=== PATIENT | male | born 1965 | race Caucasian/White ===

== ENCOUNTER 2016-09-09 09:14 | Emergency (ER) | payer OTHER ==
[~2016-09-09] VITALS: Ht 185.4 cm; Wt 81.6 kg
[~2016-09-09 09:14] MED LIST: NKM; PERCOCET 5-3251 EACH ORAL; PREDNISONE20 MG ORAL; VALIUM10 MG ORAL
[2016-09-09] MEDS ORDERED: Ketorolac 30mg Inj IM ONE (09:45)
[2016-09-09] MEDS ORDERED: IBUPROFEN600 MG ORAL (09:51)
[2016-09-09] MEDS ORDERED: CYCLOBENZAPRINE10 MG ORAL (09:51)
[2016-09-09 10:04] VITALS: BP_SYST 114; BP_SYST 117; BP_DIAS 74; BP_DIAS 77
--- NOTE | 2016-09-09 10:06 | Emergency Room Report ---
History of Present Illness General Chief Complaint: Lower Back Pain or Injury Source: Patient Present Illness HPI 51-year-old male presents ED complaining of left flank pain x2 days. States that when getting up from his car 2 days ago he felt a twinge in his lower back. States she's had this problem in the past. History of back pain. States that he normally needs just some rest she tends to get better. Pain is throbbing, 510, nonradiating. No other aggravating or relieving factors. denies dysuria or hematuria. Denies any motor or leg weakness. Denies any bowel or bladder incontinence. Denies any other associated symptom Allergies: Coded Allergies: CYCLOBENZAPRINE (Verified Allergy, Mild, 10/18/14) TRAMADOL (Unverified Allergy, Unknown, 10/18/14) Patient History Past Medical History: none Past Surgical History: none Pertinent Family History: none Social History: Denies: alcohol use, drug use, smoking Immunizations: UTD Reviewed Nursing Documentation: PMH: Agreed, PSxH: Agreed Review of Systems All Other Systems: negative except mentioned in HPI Physical Exam Vital Signs Date Time Temp Pulse Resp B/P Pulse Ox O2 Delivery O2 Flow Rate FiO2 09/09/16 09:18 97.9 93 20 114/77 99 Room Air Sp02 EP Interpretation: reviewed, normal General Appearance: no apparent distress, alert, GCS 15, non-toxic Head: normocephalic Eyes: bilateral eye PERRL, bilateral eye normal inspection ENT: normal ENT inspection Neck: normal inspection Respiratory: normal inspection Cardiovascular #1: normal inspection Gastrointestinal: normal inspection Rectal: deferred Genitourinary: no CVA tenderness, no vertebral tenderness Musculoskeletal: tender - paraspinal lumbar tenderness Neurologic: alert, oriented x3, responsive, motor strength/tone normal, sensory intact, speech normal Psychiatric: normal inspection Skin: normal inspection Lymphatic: normal inspection Medical Decision Making Diagnostic Impression: Primary Impression: Low back sprain Qualified Codes: S33.9XXA - Sprain of unspecified parts of lumbar spine and pelvis, initial encounter ER Course Hospital Course 51-year-old male presents ED complaining of lower back pain x 2 days Differential diagnoses include: pyelonephritis, kidney stone, muscle strain, Lspine fracture Clinical course Patient placed on stretcher. After initial history and physical exam reveals a middle-age male in no acute distress. There is no vertebral body tenderness. There is no flank tenderness. There is some paraspinal lumbar tenderness in the left lower back. straight leg raise negative. 5 out of 5 motor strength in both legs I ordered toradol for pain. Upon reassessment patient states pain has improved. Diagnosis - low back pain Stable and discharged to home with prescription for Motrin, Flexeril. Followup with PMD. Return to ED if symptoms recur or worsen Last Vital Signs Date Time Temp Pulse Resp B/P Pulse Ox O2 Delivery O2 Flow Rate FiO2 09/09/16 09:18 97.9 93 20 114/77 99 Room Air Status: improved Disposition: HOME, SELF-CARE Condition: Stable Scripts Cyclobenzaprine Hcl* (FLEXERIL*) 10 Mg Tablet 10 MG ORAL TID Y for Muscle Spasm, #20 TAB Prov: LELE FERGUSON M.D. 09/09/16 Ibuprofen* (MOTRIN*) 600 Mg Tablet 600 MG ORAL Q8H Y for For Pain, #30 TAB 0 Refills Prov: LELE FERGUSON M.D. 09/09/16 Departure Forms: Return to Work Return to Work Date: September 14, 2016 Work Restrictions: None Patient Instructions: Low Back Sprain With Rehab-[facility] LELE FERGUSON M.D. September 09, 2016 10:06
== END 2016-09-09 10:05 | disposition home or self-care (01) ==
LOC: EMR 09:42
DX: S33.5XXA Sprain of ligaments of lumbar spine, initial encounter (principal); X58.XXXA Exposure to other specified factors, initial encounter; Y93.9 Activity, unspecified; Y99.9 Unspecified external cause status; Z88.5 Allergy status to narcotic agent; R10.9 Unspecified abdominal pain
CPT/HCPCS: 96372; 99284; J1885

== ENCOUNTER 2016-09-16 19:43 | Emergency (ER) | payer OTHER ==
[~2016-09-16] VITALS: Ht 185.4 cm; Wt 83.9 kg
[~2016-09-16 19:43] MED LIST changes: +CYCLOBENZAPRINE10 MG ORAL; +IBUPROFEN600 MG ORAL
[2016-09-16 20:07] VITALS: BP 130/84
[2016-09-16] MEDS ORDERED: Ketorolac 30mg Inj IM ONE (20:15)
[2016-09-16] MEDS ORDERED: IBUPROFEN600 MG ORAL (20:16)
[2016-09-16] MEDS ORDERED: SOMA350 MG PO (20:17)
[2016-09-16 20:37] VITALS: BP 130/84
--- NOTE | 2016-09-16 22:07 | Emergency Room Report ---
History of Present Illness General Chief Complaint: Lower Back Pain or Injury Source: Patient Present Illness HPI 51-year-old male presents ED complaining of back pain. States pain for the last 3 days. 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 Patient has had back pain in the past. Has been seen here in the past for his back pain. Pain is left sided, throbbing, 8/10, worse with bending or twisting. Nonradiating. Denies bowel or bladder incontinence. Denies leg or motor weakness. No other aggravating or relieving factors. Denies any other associated symptoms Allergies: Coded Allergies: CYCLOBENZAPRINE (Verified Allergy, Mild, 10/18/14) TRAMADOL (Unverified Allergy, Unknown, 10/18/14) Patient History Past Medical History: none Past Surgical History: none Pertinent Family History: none Social History: Denies: alcohol use, drug use, smoking Immunizations: UTD Reviewed Nursing Documentation: PMH: Agreed, PSxH: Agreed Nursing Documentation-PMH Past Medical History: No History, Except For Review of Systems All Other Systems: negative except mentioned in HPI Physical Exam Vital Signs Date Time Temp Pulse Resp B/P Pulse Ox O2 Delivery O2 Flow Rate FiO2 09/16/16 19:57 98.1 125 16 130/84 98 Room Air Sp02 EP Interpretation: reviewed, normal General Appearance: no apparent distress, alert, GCS 15, non-toxic Head: normocephalic, atraumatic Eyes: bilateral eye PERRL, bilateral eye normal inspection ENT: hearing grossly normal, normal pharynx, no angioedema, normal voice Neck: full range of motion, supple/symm/no masses Respiratory: chest non-tender, lungs clear, normal breath sounds, speaking full sentences Cardiovascular #1: regular rate, rhythm, no edema Cardiovascular #2: 2+ carotid (R), 2+ carotid (L), 2+ radial (R), 2+ radial (L) , 2+ dorsalis pedis (R), 2+ dorsalis pedis (L) Gastrointestinal: normal bowel sounds, non tender, soft, non-distended, no guarding, no rebound Rectal: deferred Genitourinary: normal inspection, no vertebral tenderness Musculoskeletal: back normal, gait/station normal, normal range of motion, non- tender, tender - paraspinal lumbar tenderness Neurologic: alert, oriented x3, responsive, motor strength/tone normal, sensory intact, speech normal Psychiatric: judgement/insight normal, memory normal, mood/affect normal, no suicidal/homicidal ideation Reflexes: 3+ bicep (R), 3+ bicep (L), 3+ tricep (R), 3+ tricep (L), 3+ knee (R) , 3+ knee (L) Skin: normal color, no rash, warm/dry, well hydrated Lymphatic: no adenopathy Medical Decision Making Diagnostic Impression: Primary Impression: Low back sprain Qualified Codes: S33.9XXA - Sprain of unspecified parts of lumbar spine and pelvis, initial encounter ER Course Hospital Course 51-year-old male presents ED complaining of lower back pain. Differential diagnoses include: pyelonephritis, kidney stone, muscle strain, Lspine fracture Clinical course Patient placed on stretcher. After initial history and physical I ordered toradol for pain. Upon reassessment patient states pain has improved. Pain is muscular on exam. Patient has been here multiple times for similar back pain. Has responded well to Toradol. Patient has never required narcotic medication for his pain Diagnosis - back pain Stable and discharged to home with prescription for Motrin, Soma. Followup with PMD. Return to ED if symptoms recur or worsen Last Vital Signs Date Time Temp Pulse Resp B/P Pulse Ox O2 Delivery O2 Flow Rate FiO2 09/16/16 20:37 98.1 89 16 130/84 98 Room Air Status: improved Disposition: HOME, SELF-CARE Condition: Stable Scripts Carisoprodol* (SOMA*) 350 Mg Tablet 350 MG PO Q6H, #20 TAB Prov: LELE FERGUSON M.D. 09/16/16 Ibuprofen* (MOTRIN*) 600 Mg Tablet 600 MG ORAL Q8H Y for For Pain, #30 TAB 0 Refills Prov: LELE FERGUSON M.D. 09/16/16 Referrals: [facility],REFERRING (PCP) Departure Forms: Return to Work Return to Work Date: Sep 20, 2016 Work Restrictions: No Heavy Lifting Patient Instructions: Lumbosacral Strain LELE FERGUSON M.D. Sep 16, 2016 22:07
== END 2016-09-16 20:37 | disposition home or self-care (01) ==
LOC: EMR 20:14
DX: S39.012A Strain of muscle, fascia and tendon of lower back, initial encounter (principal); X58.XXXA Exposure to other specified factors, initial encounter; Y93.9 Activity, unspecified; Y99.9 Unspecified external cause status; Z88.5 Allergy status to narcotic agent
CPT/HCPCS: 96372; 99284; J1885

== ENCOUNTER 2016-11-12 09:15 | Emergency (ER) | payer OTHER ==
[~2016-11-12] VITALS: Ht 185.4 cm; Wt 79.4 kg
[~2016-11-12 09:15] MED LIST changes: +SOMA350 MG PO
[2016-11-12 09:36] VITALS: BP 127/90
[2016-11-12] MEDS ORDERED: NORCO 5-325 TA1 EACH ORAL (09:52)
[2016-11-12 10:00] VITALS: BP 127/90
--- NOTE | 2016-11-12 13:43 | Emergency Room Report ---
History of Present Illness General Chief Complaint: General Complaint Source: Patient, Medical Record Present Illness HPI Patient presents emergency department today complaining left leg pain cramps. Patient states that he pulled his hamstring a few days ago and has been off work. He needs examine return to work note. He denies any dysuria or frequency. Denies any weakness. Denies any fever. No other complaints are noted. Symptoms noted to be moderate moderate. No other modifying factors. No other associated signs and symptoms. No other complaints were noted. Allergies: Coded Allergies: CYCLOBENZAPRINE (Verified Allergy, Mild, 10/18/14) TRAMADOL (Unverified Allergy, Unknown, 10/18/14) Patient History Past Medical History: none Past Surgical History: none Pertinent Family History: none Social History: Denies: alcohol use, drug use, smoking Reviewed Nursing Documentation: PMH: Agreed, PSxH: Agreed Nursing Documentation-PMH Past Medical History: No History, Except For Review of Systems All Other Systems: negative except mentioned in HPI Physical Exam Vital Signs Date Time Temp Pulse Resp B/P Pulse Ox O2 Delivery O2 Flow Rate FiO2 11/12/16 09:25 98.1 89 14 127/90 96 Room Air Sp02 EP Interpretation: reviewed, normal General Appearance: normal inspection, well appearing, no apparent distress, alert Head: atraumatic Eyes: bilateral eye normal inspection ENT: normal ENT inspection, hearing grossly normal, normal voice Neck: normal inspection, full range of motion, supple, no bony tend Respiratory: normal inspection, lungs clear, normal breath sounds, no respiratory distress, no retraction, no wheezing Cardiovascular #1: regular rate, rhythm, no edema Gastrointestinal: normal inspection, normal bowel sounds, non tender, soft, no guarding, no hernia Genitourinary: no CVA tenderness Musculoskeletal: normal inspection, back normal, normal range of motion Neurologic: normal inspection, alert, responsive, speech normal Psychiatric: normal inspection, judgement/insight normal, mood/affect normal Skin: normal inspection, normal color, no rash Medical Decision Making Diagnostic Impression: Primary Impression: Hamstring strain Additional Impression: Sciatica ER Course Patient presents emergency department today complaining of lower extremity pain. Differential considerations include muscle spasm, muscle strain, radiculopathy just name a few. Patient exam is fairly benign. Patient appears be improving and the without difficulty. Differential I felt the patient to return to work. Patient was given prescription for pain medication to be taken as needed.Patient is advised to follow up with primary doctor in 2-3 days and return the emergency room for any worsening symptoms and as needed. Last Vital Signs Date Time Temp Pulse Resp B/P Pulse Ox O2 Delivery O2 Flow Rate FiO2 11/12/16 10:00 98.1 64 14 127/90 96 Room Air Status: improved Disposition: HOME, SELF-CARE Condition: Stable Scripts Hydrocodone Bit/Acetaminophen 5-325* (NORCO 5-325*) 1 Each Tablet 1 TAB ORAL Q6H Y for For Pain, #15 TAB 0 Refills Prov: AGUILA ALEXANDRA M.D. 11/12/16 Referrals: [facility]/,REFERRING (PCP) Departure Forms: Return to Work Return to Work Date: Nov 15, 2016 Patient Instructions: Hamstring Strain, Sciatica, [id number] AGUILA ALEXANDRA M.D. Nov 12, 2016 13:43
== END 2016-11-12 10:02 | disposition home or self-care (01) ==
LOC: EMR 09:53
DX: S76.312A Strain of muscle, fascia and tendon of the posterior muscle group at thigh level, left thigh, initial encounter (principal); X50.9XXA Other and unspecified overexertion or strenuous movements or postures, initial encounter; Y92.89 Other specified places as the place of occurrence of the external cause; M54.30 Sciatica, unspecified side; Z88.6 Allergy status to analgesic agent
CPT/HCPCS: 99283

== ENCOUNTER 2016-11-16 11:37 | Emergency (ER) | payer OTHER ==
[~2016-11-16] VITALS: Ht 185.4 cm; Wt 79.4 kg
[~2016-11-16 11:37] MED LIST changes: +NORCO 5-325 TA1 EACH ORAL
[2016-11-16 11:42] VITALS: BP 153/95
[2016-11-16] MEDS ORDERED: ATENOLOL25 MG ORAL (11:46)
[2016-11-16] MEDS ORDERED: Lidocaine 1% MPF 10mg/ml 5ml IM ONE (12:15)
[2016-11-16 12:18] VITALS: BP 141/86
[2016-11-16] MEDS ORDERED: ROBAXIN-750750 MG PO (12:31)
[2016-11-16] MEDS ORDERED: NAPROXEN500 M1 ORAL (12:31)
--- NOTE | 2016-11-16 12:31 | Emergency Room Report ---
History of Present Illness General Chief Complaint: Lower Extremity Injury Source: Patient Present Illness HPI 51 y/o male c/o left hamstring pain x 1 week. Was playing golf and felt a sudden cramp in his right posterior thigh. Pain is worse with stretching his leg and ambulating. Patient has tried to stretch it without relief. 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 Patient denies any numbness, tingling, pressure, paralysis, cyanosis, bruising, loss of sensation, or loss of range of motion. Allergies: Coded Allergies: CYCLOBENZAPRINE (Verified Allergy, Mild, 10/18/14) TRAMADOL (Unverified Allergy, Unknown, 10/18/14) Patient History Past Medical History: see triage record Past Surgical History: none Pertinent Family History: none Reviewed Nursing Documentation: PMH: Agreed, PSxH: Agreed Nursing Documentation-PMH Hx Hypertension: Yes Review of Systems All Other Systems: negative except mentioned in HPI Physical Exam Vital Signs Date Time Temp Pulse Resp B/P Pulse Ox O2 Delivery O2 Flow Rate FiO2 11/16/16 11:42 98.1 100 16 153/95 97 Room Air Sp02 EP Interpretation: reviewed, normal General Appearance: no apparent distress, alert, GCS 15, non-toxic Head: normocephalic, atraumatic Eyes: bilateral eye normal inspection ENT: no angioedema, normal voice Respiratory: normal breath sounds, speaking full sentences Cardiovascular #1: normal peripheral pulses, normal capillary refill Musculoskeletal: back normal, gait/station normal, normal range of motion, tender - Left hamstring with muscle spasm and point tenderness Neurologic: alert, oriented x3, responsive, motor strength/tone normal, sensory intact, speech normal Skin: normal color, no rash, warm/dry, well hydrated, other - no echymosis Lymphatic: no adenopathy Medical Decision Making PA Attestation Dr. Ring my supervising physician with whom patient management has been discussed with. Diagnostic Impression: Primary Impression: Hamstring strain Qualified Codes: S76.311A - Strain of muscle, fascia and tendon of the posterior muscle group at thigh level, right thigh, initial encounter ER Course Pt. presents to the ED c/o hamstring pain Ddx considered but are not limited to fracture, contusion, sprain, strain Vital signs: are WNL, pt. is afebrile H&PE are most consistent with hamstring strain ORDERS: diagnosis is clinical, patient declined imaging ED INTERVENTIONS: Trigger point injection with 2cc of 1% lido w/o epi injected in fan like distribution of left hamstring with 25g 1" needle provided improved pain. DISCHARGE: At this time pt. is stable for d/c to home. Will provide printed patient care instructions, and any necessary prescriptions. Care plan and follow up instructions have been discussed with the patient prior to discharge. Last Vital Signs Date Time Temp Pulse Resp B/P Pulse Ox O2 Delivery O2 Flow Rate FiO2 11/16/16 12:18 98.1 98 16 141/86 97 Room Air Status: unchanged Disposition: HOME, SELF-CARE Condition: Improved Scripts Methocarbamol* (ROBAXIN-750*) 750 Mg Tablet 750 MG PO TID, #30 TAB 0 Refills Prov: GOKUL RESENDEZ.ALarissa 11/16/16 Naproxen* (NAPROXEN*) 500 Mg Tablet.dr 500 MG ORAL TWICE A DAY for 10 Days, #20 TAB Prov: GOKUL RESENDEZ.A. 11/16/16 Patient Instructions: Hamstring Strain With Rehab-SportsMed Additional Instructions: Take medication as directed. Advise patient to use RICE therapy and avoid exercises for the next 2-3 weeks to help rest the leg. Patient instructed to massage the muscles that are tight or tense, put ice for 5-7 minutes or a frozen bag of peas or cold gel pack on the area for 20 minutes at a time, a few times a day, put heat on the area to reduce pain and stiffness by either taking a hot shower or hot bath, or put a hot towel on the area for no more than 20 minutes at a time. Patient instructed to not use anything too hot that could burn your skin. GOKUL RESENDEZ Nov 16, 2016 12:31
== END 2016-11-16 12:47 | disposition home or self-care (01) ==
LOC: EMR 12:18
DX: S76.311A Strain of muscle, fascia and tendon of the posterior muscle group at thigh level, right thigh, initial encounter (principal); I10 Essential (primary) hypertension; Z88.8 Allergy status to other drugs, medicaments and biological substances; Z88.6 Allergy status to analgesic agent; X58.XXXA Exposure to other specified factors, initial encounter; Y93.53 Activity, golf; Y92.9 Unspecified place or not applicable